=== PATIENT | female | born 1970 | race African-American/Black ===

== ENCOUNTER 2017-02-22 14:37 | Emergency (ER) | payer OTHER ==
[~2017-02-22] VITALS: Ht 165.1 cm; Wt 80.0 kg
[2017-02-22 15:30] VITALS: BP 126/70
== END 2017-02-22 21:09 | disposition left against medical advice (07) ==
LOC: ER 20:58
DX: R06.02 Shortness of breath (principal); R53.1 Weakness; Z53.21 Procedure and treatment not carried out due to patient leaving prior to being seen by health care provider